=== PATIENT | female | born 1970 | race African-American/Black ===

== ENCOUNTER 2022-07-24 01:17 | Emergency (ER) | payer MEDICARE, MEDICAID ==
[~2022-07-24] VITALS: Ht 172.7 cm; Wt 155.0 kg
[2022-07-24 07:02] VITALS: BP 170/112
[2022-07-24] MEDS ORDERED: HYDROcodone-ACET 5/325MG TAB PO ONE (07:15)
[2022-07-24] MEDS ORDERED: METH750T22 PO (08:36)
[2022-07-24] MEDS ORDERED: IBUP800T27 PO (08:36)
== END 2022-07-24 08:42 | disposition home or self-care (01) ==
LOC: EDBD 01:17 → ER 01:17
DX: M79.602 Pain in left arm (principal); M19.90 Unspecified osteoarthritis, unspecified site; E11.9 Type 2 diabetes mellitus without complications; E78.5 Hyperlipidemia, unspecified; F20.9 Schizophrenia, unspecified; Z88.0 Allergy status to penicillin
CPT/HCPCS: 93005; 93971